=== PATIENT | female | born 1990 | race Caucasian/White ===

== ENCOUNTER 2017-08-11 18:53 | Outpatient (CLI) | payer SELFPAY ==
[~2017-08-11] VITALS: Ht 152.4 cm; Wt 103.6 kg
[~2017-08-11 18:53] MED LIST: MACROBID 1100 MG/CAP PO; MOTRIN 600600 MG/TAB PO; PERCOCET 325 MG1 TA2 PO; PRENATAL1 TA1 PO
[2017-08-11 19:14] VITALS: BP 135/63; PULSE 113; TEMP 98.4
[2017-08-11] MEDS ORDERED: PRENATAL1 TA7 PO (19:14)
[2017-08-11] MEDS ORDERED: NATURAL IRON65 MG (19:22)
[2017-08-11 23:04] LABS: COLLECTION METHOD CLEAN CATCH
[2017-08-11 23:10] LABS: AMORPHOUS CRYSTAL Present /uL; MUCOUS Present /lpf; PH 6 (5-8); SQUAMOUS EPITHELIAL 0-2 /hpf; URINE APPEARANCE Hazy; URINE BACTERIA Rare /hpf; URINE BILIRUBIN Negative (NEGATIVE); URINE BLOOD Negative (NEGATIVE); URINE COLOR Yellow; URINE GLUCOSE Negative (NEGATIVE); URINE KETONE Negative (NEGATIVE); URINE LEUKOCYTE ESTERASE Negative (NEGATIVE); URINE NITRATE Negative (NEGATIVE); URINE PROTEIN(semi-quant) Negative (NEGATIVE); URINE RBC 0-2 /hpf; URINE UROBILINOGEN Negative (NEGATIVE); URINE WBC 0-2 /hpf
== END 2017-08-11 23:30 | disposition home or self-care (01) ==
LOC: LDRO 18:53
PROVIDERS: Obstetrics & Gynecology
DX: O26.893 Other specified pregnancy related conditions, third trimester (principal); Z3A.32 32 weeks gestation of pregnancy
CPT/HCPCS: J7120

== ENCOUNTER 2017-08-27 21:46 | Outpatient (CLI) | payer SELFPAY ==
[~2017-08-27] VITALS: Ht 154.9 cm; Wt 103.2 kg
[~2017-08-27 21:46] MED LIST changes: +NATURAL IRON65 MG; +PRENATAL1 TA7 PO
[2017-08-27 22:10] VITALS: BP 130/73; PULSE 82; TEMP 98.1
[2017-08-27 22:42] VITALS: BP 130/73; PULSE 82; TEMP 98.1
[2017-08-27 23:30] VITALS: BP 119/56; PULSE 80
[2017-08-28 01:40] VITALS: BP 118/54; PULSE 88
== END 2017-08-28 02:15 | disposition home or self-care (01) ==
LOC: LDRO 21:46
DX: O71.89 Other specified obstetric trauma (principal); V89.2XXA Person injured in unspecified motor-vehicle accident, traffic, initial encounter; Z3A.34 34 weeks gestation of pregnancy

== ENCOUNTER 2017-09-27 05:26 | Inpatient (IN) | payer OTHER ==
[~2017-09-27] VITALS: Ht 153.7 cm; Wt 105.0 kg
[2017-09-27] VITALS (21 sets, daily range): BP systolic 99–135; BP diastolic 42–83; PULSE 64–118; TEMP 97.5–98.7
[2017-09-27 06:31] LABS: BASO % 0.1 % (0.0-2.0); EOS % 0.3 % (0-4.0); GRAN # 4.5 (1.4-6.5); GRAN % 63.3 % (42.2-75.2); HEMOGLOBIN 11.6 g/dl (12.5-16.0); LYMPH % 27.9 % (20.0-51.0); MEAN CELL VOLUME 86 fl (80.0-100.0); MEAN CORPUSCULAR HEMOGLOBIN 28 pg (27.0-31.0); MEAN CORPUSCULAR HGB CONC 33 g/dl (33.0-37.0); MEAN PLATELET VOLUME 10.9 fl (7.4-10.4); MONO # 0.6 (0.1-0.6); PLATELET COUNT 187 K/mm3 (130-400); RED BLOOD COUNT 4.14 M/mm3 (4.10-5.30); REDCELL DISTRIBUTION WIDTH-CV 15.6 % (11.5-14.5)
[2017-09-27 06:36] LABS: HEMATOCRIT 35.7 % (37.0-47.0)
[2017-09-27] MEDS ORDERED: MOTRIN 800800 MG/TAB PO (10:08)
[2017-09-27] MEDS ORDERED: PERCOCET 325 MG1 TA2 PO (10:08)
[2017-09-28 02:00] VITALS: BP 110/60; PULSE 78; TEMP 98.8
[2017-09-28 08:30] VITALS: BP 114/68; PULSE 93; TEMP 97.4
[2017-09-28 11:14] LABS: HEMOGLOBIN 10.4 g/dl (12.5-16.0)
[2017-09-28 11:33] LABS: HEMATOCRIT 32.4 % (37.0-47.0)
[2017-09-28 15:41] VITALS: BP 116/72; PULSE 78; TEMP 98.1
[2017-09-28 20:00] VITALS: BP 140/69; PULSE 88; TEMP 98
[2017-09-29 08:15] VITALS: BP 129/67; PULSE 86; TEMP 98.8
== END 2017-09-29 15:00 | disposition home or self-care (01) | DRG 765 ==
LOC: OB 05:26 → LDR 06:15 → OB 09-29 15:00
PROVIDERS: Obstetrics & Gynecology
PROC: 10D00Z1 Extraction of Products of Conception, Low, Open Approach (ICD-10-PCS; principal; 2017-09-27)
DX: O34.211 Maternal care for low transverse scar from previous cesarean delivery (principal); Z68.41 Body mass index [BMI] 40.0-44.9, adult; Z3A.39 39 weeks gestation of pregnancy; Z37.0 Single live birth; O99.214 Obesity complicating childbirth; E66.01 Morbid (severe) obesity due to excess calories; O99.344 Other mental disorders complicating childbirth; F41.8 Other specified anxiety disorders; O99.02 Anemia complicating childbirth
CPT/HCPCS: J0171; J0690; J1885; J2250; J2270; J2370; J2405; J2590; J7120